=== PATIENT | female | born 1955 | race Caucasian/White ===

== ENCOUNTER 2021-06-28 09:57 | Outpatient (REF) | payer BC, SELFPAY ==
[2021-06-28 11:31] LABS: MANUAL DIFF FLAG NO
[2021-06-28 12:09] LABS: Basophils Percent Auto 0.6 % (0-2); Eosinophils Absolute Auto 0.1 X10*3/uL (0.0-0.4); Eosinophils Percent Auto 1.3 % (0-4); Hematocrit 42.2 % (37.0-47.0); Hemoglobin 14.4 g/dl (12.0-16.0); Imm Gran Abs Auto 0.01 X10*3/uL (0.00-0.03); Imm Gran Pct Auto 0.2 % (0.0-0.4); Lymphocytes Absolute Auto 2.7 X10*3/uL (1.2-4.9); Lymphocytes Percent Auto 42.9 % (20-40); Mean Corpuscular HGB Conc 34.1 g/dl (31.0-35.0); Mean Corpuscular Hemoglobin 34.6 pg (27.0-33.0); Mean Corpuscular Volume 101.4 fL (80.0-98.0); Mean Platelet Volume 9.3 fL (9.4-12.3); Monocytes Absolute Auto 0.7 X10*3/uL (0.1-1.2); Monocytes Percent Auto 10.9 % (2-11); Neutrophils Absolute Auto 2.8 x10*3/uL (2.0-8.3); Neutrophils Percent Auto 44.1 % (45-73); Platelet Count 265 X10*3/uL (160-400); Red Blood Count 4.16 X10*6/uL (4.20-5.50); Red Cell Distribution Width 11.9 % (11.0-16.0); White Blood Count 6.2 X10*3/uL (4.8-10.8)
[2021-06-28 12:37] LABS: D Dimer High Sensitivity < 150 NG/ML
[2021-06-28 12:52] LABS: Anion Gap 12 (12-20); Blood Urea Nitrogen 19 mg/dL (9-16); Calcium 9.8 mg/dL (8.4-10.2); Carbon Dioxide 26 mmol/L (22-29); Chloride 105 mmol/L (96-108); Estimated Glomerular Filt Rate > 60; Glucose Random 83 mg/dL (60-115); Potassium 4.5 mmol/L (3.3-5.1); Sodium 138 mmol/L (135-145)
[2021-06-28 13:21] LABS: Erythrocyte Sedimentation Rate 5 MM/HR (0-20)
== END 2021-06-28 09:58 | disposition home or self-care (01) ==
LOC: HO.LAB 09:57
PROVIDERS: PCP Internal Medicine; Visit Provider Hospitalist
DX: R00.0 Tachycardia, unspecified (principal); I48.91 Unspecified atrial fibrillation; R06.02 Shortness of breath; R42 Dizziness and giddiness; R00.2 Palpitations; R06.00 Dyspnea, unspecified; G47.33 Obstructive sleep apnea (adult) (pediatric); Z99.89 Dependence on other enabling machines and devices
CPT/HCPCS: 36415; 80048; 85025; 85379; 85652; 94618

== ENCOUNTER 2021-07-12 09:28 | Outpatient (REF) | payer BC, SELFPAY ==
--- NOTE | ~2021-07-12 | CT_ITS ---
EXAMINATION: CT CHEST WITH CONTRAST CLINICAL INFORMATION: Dyspnea. COMPARISON: None TECHNIQUE: Multidetector volumetric CT imaging of the chest was obtained after the administration of 65 mL of Omnipaque 350 intravenous contrast without immediate adverse reactions. Axial MIP volume rendering provided. Sagittal and coronal reformatted images were obtained. This CT examination was performed using dose optimization techniques as appropriate, variously including the following: *Automated exposure control *Adjustment of mA and/or kV according to patient size (this includes techniques or standardized protocols for targeted exams where dose is matched to indication/reason for exam; i.e. extremities or head) *Use of iterative reconstruction technique DLP: 319 mGy-cm FINDINGS: LUNGS: The lungs are clear. No evidence of emphysema, interstitial lung disease or bronchiectasis is seen. No endobronchial or endotracheal lesion is seen. MEDIASTINUM: The heart is slightly enlarged. There is mild coronary artery calcification. There are upper normal size right hilar lymph nodes. The mediastinum is otherwise normal. PLEURA: There is no pleural effusion. No pleural mass or thickening. AXILLA: No lymphadenopathy. UPPER ABDOMEN: Unremarkable. OSSEOUS STRUCTURES: There are degenerative changes of the spine. CT/CT chest w con IMPRESSION: Slightly enlarged heart and mild coronary artery calcification. Upper normal size right hilar lymph nodes. Otherwise unremarkable exam. Fleischner guidelines were followed.
[2021-07-12] MEDS: iohexoL 350 MG/ML 100 ML INFUS..BTL IV (10:37)
== END 2021-07-12 09:29 | disposition home or self-care (01) ==
LOC: HO.CT 09:28
PROVIDERS: Visit Provider Hospitalist
DX: R06.00 Dyspnea, unspecified (principal)
CPT/HCPCS: 71260; Q9967

== ENCOUNTER → 2021-08-13 09:33 | Outpatient (BNVA) | payer BC, SELFPAY | PROVIDERS: PCP Internal Medicine; Visit Provider Hospitalist | DX: R00.0 Tachycardia, unspecified (principal); R06.00 Dyspnea, unspecified; R00.2 Palpitations; R42 Dizziness and giddiness ==

== ENCOUNTER 2024-12-02 10:03 | Outpatient (AMB) | payer BC, SELFPAY ==
--- OUTSIDE RECORDS SUMMARY | 2024-12-02 10:56 | XMS_ITS | Clinical Summary ---
Author Organization [address] [place] [address] [place] [phone] Phone Care Team Providers Care Railroad Mechanic Name Role Phone Richelle Keen NP Primary Care Provider +1- [phone] Allergies No known active allergies Medications metoprolol succinate (TOPROL-XL) 50 mg 24 hr tablet Take 1.5 tablets (75 mg total) by mouth 2 (two) times a day. 4 Active Eliquis 5 mg tablet TAKE 1 TABLET BY MOUTH TWICE A DAY 180 tablet 3 5 Active flecainide (TAMBOCOR) 50 mg tablet TAKE 1 TABLET BY MOUTH TWICE A DAY 180 tablet 3 5 Active flecainide (TAMBOCOR) 50 mg tablet Take 1 tablet (50 mg total) by mouth 2 (two) times a day. 4 11/09/19 25 Discontinued Active Problems Problem Noted Date Diagnosed Date Malaise and fatigue 04/28/2021 PVC (premature ventricular contraction) 04/28/19 22 SOB (shortness of breath) 04/28/2021 Atrial flutter with rapid ve ntricular response (CMS/HCC V24, CMS/HCC V28) 02/19/2021 Elevated lipids 02/19/2021 Hypertension 02/19/2021 PAF (paroxysmal atrial fibri llation) ([facility] V24, [facility] V28) 02/19/2021 Palpitation 02/19/2021 Surgical History Surgery Date Site/Laterality Comments ROTATOR CUFF REPAIR 2014 Left PROCEDURE: HISTORICAL ROTATOR CUFF REPAIR Medical History Medical History Date Comments Pneumonia 2019 DX:Pneumonia EDILIA (obstructive sleep apnea) DX :EDILIA (obstructive sleep apnea) Dyspnea DX:Dyspnea Family History Medical History Relation Name Comments Other: Motor vehicle accident Brother Cirrhosis Father Diabetes Mother Hyperlipidemia Mother Stroke Mother Hyperlipidemia Sister 1 Other: Lupus erythematosus Sister 2 Relation Name Status Comments Brother Father Mother Sister 1 Sister 2 Social History Tobacco Use Types Packs/Day Years Used Date Smoking Tobacco: Never Smokeless Tobacco: Never Alcohol Use Standard Drinks/Week Comments Yes 2 (1 standard drink = 0.6 oz pur e alcohol) Comments Unknown Sex and Gender Information Value Date Recorded Sex Assigned at Not on file Legal Sex Female 2:16 PM EST Gender Identity Not on file Sexual Orientation Not on file Obstetrics History Last Filed Vital Signs Vital Sign Reading Time Taken Comments Blood Pressure 110/80 08/22/2024 9:34 AM EDT Pulse 59 08/07/2024 9:27 AM EDT Temperature - - Respiratory Rate - - Oxygen Saturation 94% 08/07/2024 9:27 AM EDT Inhaled Oxygen Concentration - - Weight 84.8 kg (187 lb) 08/22/2024 9:34 AM EDT Height 152.4 cm (5') 08/22/2024 9:34 AM EDT Body Mass Index 36.52 08/22/2024 9:34 AM EDT Plan of Treatment Upcoming Encounters Date Type Department Care Team (Late st Contact Info) Description 02/17/2025 9:40 AM EST Office Visit [facility] - [address] [facility] [address] [place] [address] Livier Barber PA [address] [place] [address] Health Maintenance Due Date Last Done Comments Breast Cancer Screening 1957 DTaP,Tdap,and Td Vaccines (1 - Tdap) 1976 Pneumococcal Vaccine: 50+ Years (1 of 1 - PCV) 2007 Zoster Vaccines (1 of 2) 2007 Cholesterol Screening (Lipid Panel) 03/26/2022 Colorectal Cancer Screening: Colonoscopy 03/26/2022 Falls Risk Assessment 03/26/2022 Hepatitis C Screening 03/26/2022 Medicare Annual Wellness Visit 03/26/2022 Osteoporosis Screening (Bone Density Screening) 03/26/2022 Social Influencers of Health Screening 03/26/2022 COVID-19 Vaccine (3 - 2023-2 5 season) 2023 07/17/2020, 06/19/2020 Depression Screening 04/17/2024 Influenza Vaccine (#1) 2024 Hypertension/CHF/CAD Annual BMP Blood Test 08/09/2025 08/09/2024 RSV Immunization Adult Patients (1 - 1-dose 75+ series) 2032 HIB Vaccines Aged Out No longer eligi ble based on patient's age to complete this topic HPV Vaccines Aged Out No longer eligi ble based on patient's age to complete this topic Hepatitis A Vaccines Aged Out No long er eligible based on patient's age to complete this topic Hepatitis B Vaccines Aged Out No long er eligible based on patient's age to complete this topic IPV Vaccines Aged Out No longer eligi ble based on patient's age to complete this topic MMR Vaccines Aged Out No longer eligi ble based on patient's age to complete this topic Meningococcal ACWY Vaccine Aged Out N o longer eligible based on patient's age to complete this topic Meningococcal B Vaccine Aged Out No l onger eligible based on patient's age to complete this topic RSV Immunization Patients Under 20 months Aged Out No longer eligible b ased on patient's age to complete this topic Varicella Vaccines Aged Out No longer eligible based on patient's age to complete this topic Procedures Procedure Name Priority Date/Time Associated Diagnosis Comments COMPREHENSIVE METABOLIC PANEL Routine 08/09/2024 8:48 AM EDT PAF (paroxysmal atrial fibrillation) (CMS/HCC V24, CMS/HCC V28) Primary hypertension Palpitation PVC (premature ventricular contraction) from Last 3 Months or Most Recently Relevant to Health Maintenance Results * (ABNORMAL) Comprehensive metabolic panel (08/09/2024 8:48 AM EDT) [facility] Signature Glucose 95 70 - 99 mg/dL [facility] 1 Blood Urea Nitrogen (BUN) 17 8 - 27 mg/dL [facility] 1 Creatinine 0.75 0.57 - 1.00 mg/dL [facility] 1 eGFR 87 >59 mL/min/1. 73 [facility] 1 BUN/Creatinine Ratio 23 12 - 28 [facility] 1 Sodium 141 134 - 144 mmol/L [facility] 1 Potassium 4.5 3.5 - 5.2 mmol/L [facility] 1 Chloride 104 96 - 106 mmol/L [facility] 1 Carbon Dioxide 19(L) 20 - 29 mmol/L [facility] 1 Calcium 8.7 8.7 - 10.3 mg/dL [facility] 1 Protein Total 6.5 6.0 - 8.5 g/dL [facility] 1 Albumin 4.3 3.9 - 4.9 g/dL [facility] 1 Globulin Total 2.2 1.5 - 4.5 g/dL [facility] 1 Bilirubin Total 0.4 0.0 - 1.2 mg/dL [facility] 1 Alkaline Phosphatase 74 44 - 121 IU/L [facility] 1 Aspartate aminotransferase (AST) 22 0 - 40 IU/L [facility] 1 Alanine Aminotransferase (ALT) 19 0 - 32 IU/L [facility] 1 Blood Venous blood specimen / Unknown 08/09/2024 8:48 AM EDT 08/09/2024 Narrative [facility] 1 - 08/12/2024 1:06 PM EDT Performed at: 01 - [facility] [address] [id number] Dumper Mold Cleaner: Yanna Lawrence MD, Phone: [phone] us Livier TERAN LAB BLOOD ORDERABLES Final Resul t [facility] 1 from Last 3 Months or Most Recently Relevant to Health Maintenance Insurance Care Teams Railroad Mechanic Relationship Specialty Start Date End Date Richelle Keen NP [address] [place] [id number] PCP - General Nurse Practitioner 08/07/24
--- OUTSIDE RECORDS SUMMARY | 2024-12-02 10:56 | XMS_ITS | Clinical Summary ---
Author Organization [facility] Address [address] [place] [address] Phone Care Team Providers Care Jewelry Enameler Name Role Phone Pcp, Unknown Primary Care Provider Unavailabl e Allergies No known active allergies Social History Tobacco Use Types Packs/Day Years Used Date Smoking Tobacco: Never Assessed Comments Unknown Sex and Gender Information Value Date Recorded Sex Assigned at Not on file Legal Sex Female 11:13 AM EDT Gender Identity Not on file Sexual Orientation Not on file Last Filed Vital Signs Vital Sign Reading Time Taken Comments Blood Pressure 130/80 01/06/2014 12:00 AM EDT Pulse 72 01/06/2014 12:00 AM EDT Temperature - - Respiratory Rate 10 01/06/2014 12:00 AM EDT Oxygen Saturation - - Inhaled Oxygen Concentration - - Weight 68 kg (150 lb) 01/06/2014 12:00 AM EDT Height 152.4 cm (5') 01/06/2014 12:00 AM EDT Body Mass Index 29.29 01/06/2014 12:00 AM EDT Plan of Treatment Not on file Medical Devices Not on file Insurance BLUE [place] OUT OF STATE PPO [place]UE [place] OUT OF STATE PPO [place]UE [place] OUT OF STATE PPO [place]UE [place] OUT OF STATE PPO [place]UE [place] OUT OF STATE PPO [place]UE [place] OUT OF STATE PPO [place]UE [place] OUT OF STATE PPO [place]UE [place] OUT OF STATE PPO BLUE [place] OUT OF STATE PPO Care Teams Jewelry Enameler Relationship Specialty Start Date End Date Pcp, Unknown PCP - General 10/20/13 Additional Source Comments The information contained in this document represents components of the legal health record. It is not the complete legal health record.[facility]
== END 2024-12-02 10:16 | disposition home or self-care (01) ==
LOC: HO.HMGAL 10:03
PROVIDERS: PCP Nurse Practitioner Primary Care; Visit Provider Registered Nurse Emergency
DX: J30.89 Other allergic rhinitis (principal)
CPT/HCPCS: 95117; 95165

== ENCOUNTER 2024-12-25 08:36 | Outpatient (AMB) | payer MEDICARE, SELFPAY ==
--- OUTSIDE RECORDS SUMMARY | 2024-12-25 09:55 | XMS_ITS | Clinical Summary ---
Author Organization [address] [place] [address] [place] [phone] Phone Care Team Providers Care Customer Project Manager Name Role Phone Richelle Keen NP Primary Care Provider [phone]- [phone] Allergies No known active allergies Medications Eliquis 5 mg tablet TAKE 1 TABLET BY MOUTH TWICE A DAY 180 tablet 3 5 Active flecainide (TAMBOCOR) 50 mg tablet TAKE 1 TABLET BY MOUTH TWICE A DAY 180 tablet 3 5 Active metoprolol succinate (TOPROL-XL) 50 mg 24 hr tablet TAKE 1.5 TABLETS BY MOUTH 2 TIMES DAILY. 270 tablet 2 5 Active metoprolol succinate (TOPROL-XL) 50 mg 24 hr tablet Take 1.5 tablets (75 mg total) by mouth 2 (two) times a day. 4 12/21/19 25 Discontinued Active Problems Problem Noted Date Diagnosed Date Malaise and fatigue 04/28/2021 PVC (premature ventricular contraction) 04/28/19 22 SOB (shortness of breath) 04/28/2021 Atrial flutter with rapid ve ntricular response (CMS/HCC V24, CMS/HCC V28) 02/19/2021 Elevated lipids 02/19/2021 Hypertension 02/19/2021 PAF (paroxysmal atrial fibri llation) (CMS/[facility] V24, [facility] V28) 02/19/2021 Palpitation 02/19/2021 Surgical [...] Description 02/17/2025 9:40 AM EST Office Visit [facility] - [address] [place] [address] Livier Barber PA [address] [place] [address] [place] [phone] Health Maintenance Due Date Last Done Comments [...] 03/26/2022 Social Influencers of Health Screening 03/26/2022 Depression Screening 04/17/2024 COVID-19 Vaccine (3 - 2024-2 6 season) 2024 07/17/2020, 06/19/2020 Hypertension/CHF/CAD Annual BMP Blood Test 08/09/2025 08/09/2024 RSV Immunization Adult Patients (1 - 1-dose 75+ series) 2032 Influenza Vaccine Completed 12/17/2024 HIB Vaccines Aged Out No longer eligi [...] Comprehensive metabolic panel (08/09/2024 8:48 AM EDT) Glucose 95 70 - 99 mg/dL [facility] [...] PM EDT Performed at: 01 - [facility] [address] [id number] Study Abroad Coordinator: Yanna Lawrence MD, Phone: [phone] us Livier TERAN LAB BLOOD ORDERABLES Final Resul t [facility] 1 from Last 3 Months or Most Recently Relevant to Health Maintenance Insurance Care Teams Customer Project Manager Relationship Specialty Start Date End Date Richelle Keen NP [address] [place] [address] PCP - General Nurse Practitioner 08/07/24
--- OUTSIDE RECORDS SUMMARY | 2024-12-25 09:56 | XMS_ITS | Clinical Summary ---
Author Organization [facility] Address [address] [place] [address] Phone Care Team Providers Care Telephone Worker Name Role Phone Pcp, Unknown Primary Care [...] Medical Devices Not on file Insurance [place]UE [place] OUT STATE PPO BLUE [place] OUT OF STATE PPO [place]UE [place] OUT OF STATE PPO [place] OUT OF STATE PPO [place]UE [place] OUT OF STATE PPO [place]UE [place] OUT OF STATE PPO [place] OUT OF STATE PPO [place] OUT OF STATE PPO [place]UE [place] OUT OF STATE PPO Care Teams Telephone Worker Relationship Specialty Start Date End Date Pcp, Unknown PCP - General 10/20/13 Additional Source Comments The information contained in this document represents components of the legal health record. It is not the complete legal health record.[facility]
== END 2024-12-25 08:38 | disposition home or self-care (01) ==
LOC: HO.HMGAL 08:36
PROVIDERS: PCP Nurse Practitioner Primary Care; Visit Provider Registered Nurse Emergency
DX: J30.89 Other allergic rhinitis (principal)
CPT/HCPCS: 95117; 95165

== ENCOUNTER 2025-01-29 12:03 | Outpatient (AMB) | payer MEDICARE, SELFPAY | END 2025-01-29 12:04 | disposition home or self-care (01) | LOC: HO.HMGAL 12:03 | PROVIDERS: PCP Nurse Practitioner Primary Care; Visit Provider Registered Nurse Emergency | DX: J30.89 Other allergic rhinitis (principal) | CPT/HCPCS: 95117; 95165 ==

== ENCOUNTER 2025-02-26 10:47 | Outpatient (AMB) | payer MEDICARE, SELFPAY ==
--- OUTSIDE RECORDS SUMMARY | 2025-02-26 13:01 | XMS_ITS | Clinical Summary ---
Author Organization [facility] Address [address] [place] [address] Phone Care Team Providers Care Impregnator Electrolytic Capacitors Name Role Phone Pcp, Unknown Primary Care [...] Medical Devices Not on file Insurance [place]UE [place] OUT STATE PPO [place]UE [place] OUT OF STATE PPO [place]UE [place] OUT OF STATE PPO [place]UE [place] OUT OF STATE PPO [place]UE [place] OUT OF STATE PPO BLUE [place] OUT OF STATE PPO BLUE [place] OUT OF STATE PPO [place]UE [place] OUT OF STATE PPO [place]UE [place] OUT OF STATE PPO Care Teams Impregnator Electrolytic Capacitors Relationship Specialty Start Date End Date Pcp, Unknown PCP - General 10/20/13 Additional Source Comments The information contained in this document represents components of the legal health record. It is not the complete legal health record.[facility]
--- OUTSIDE RECORDS SUMMARY | 2025-02-26 13:01 | XMS_ITS | Clinical Summary ---
Author Organization [address] [place] [address] [place] [phone] Phone Care Team Providers Care Radiological Engineer Name Role Phone Richelle Keen NP Primary Care Provider +1- [phone] Allergies No known active allergies Medications Eliquis 5 mg tablet TAKE 1 TABLET BY MOUTH TWICE A DAY 180 tablet 3 06/05/2024 Active flecainide (TAMBOCOR) 50 mg tablet TAKE 1 TABLET BY MOUTH TWICE A DAY 180 tablet 3 11/08/2024 Active metoprolol succinate (TOPROL-XL) 50 mg 24 hr tablet TAKE 1.5 TABLETS BY MOUTH 2 TIMES DAILY. 270 tablet 2 12/20/2024 Active Active Problems Problem Noted Date Diagnosed Date Malaise and fatigue 04/28/2021 PVC (premature ventricular contraction) 04/28/19 22 SOB (shortness of breath) 04/28/2021 Atrial flutter with rapid ve ntricular response ([facility] V24, [facility] V28) 02/19/2021 Elevated lipids 02/19/2021 Hypertension 02/19/2021 PAF (paroxysmal atrial fibri llation) ([facility] V24, [facility] V28) 02/19/2021 Palpitation 02/19/2021 Encounters Date Type Department Care Team Description 02/17/2025 9:40 AM EST Office Visit [facility] - [address] [place] [address] Livier Barber PA PAF (paroxysmal atrial fibrillation) (CMS/HCC V24, CMS/HCC V28) (Primary Dx); Primary hypertension; PVC (premature ventricular contraction) from Last 3 Months Surgical History Surgery Date Site/Laterality Comments ROTATOR CUFF REPAIR 2013 Left PROCEDURE: HISTORICAL ROTATOR CUFF REPAIR Medical History Medical History Date Comments Pneumonia 2018 DX:Pneumonia EDILIA (obstructive sleep apnea) DX :EDILIA [...] Date Smoking Tobacco: Never Smokeless Tobacco: Never Tobacco Cessation:Counseling Given: Not Answered Alcohol Use Standard Drinks/Week Comments Yes 2 (1 standard drink = 0.6 oz pur e alcohol) Comments Unknown Sex and Gender Information Value Date Recorded Sex Assigned at Not on file Legal Sex Female 2:16 PM EST Gender Identity Not on file Sexual Orientation Not on file Obstetrics History Last Filed Vital Signs Vital Sign Reading Time Taken Comments Blood Pressure 130/80 02/17/2025 9:31 AM EST Pulse 60 02/17/2025 9:31 AM EST Temperature - - Respiratory Rate - - Oxygen Saturation 96% 02/17/2025 9:31 AM EST Inhaled Oxygen Concentration - - Weight 83.5 kg (184 lb) 02/17/2025 9:31 AM EST Height 152.4 cm (5') 02/17/2025 9:31 AM EST Body Mass Index 35.94 02/17/2025 9:31 AM EST Plan of Treatment Health Maintenance Due Date Last Done Comments Breast Cancer Screening 1957 Colorectal Cancer Screening: Colonoscopy 1957 DTaP,Tdap,and Td Vaccines (1 - Tdap) 1976 Pneumococcal Vaccine: 50+ Years (1 of 1 - PCV) 2007 Zoster Vaccines (1 of 2) 2007 Cholesterol Screening (Lipid Panel) 03/26/2022 Falls Risk Assessment 03/26/2022 Hepatitis C [...] Procedure Name Priority Date/Time Associated Diagnosis Comments ECG 12-LEAD Routine 02/17/2025 10:04 AM EST PAF (paroxysmal atrial fibrillation) (CMS/HCC V24, CMS/HCC V28) EXTERNAL CLINICAL LAB Routine 02/08/2025 2:10 PM EDT COMPREHENSIVE METABOLIC PANEL Routine 08/09/2024 8:48 AM EDT PAF (paroxysmal atrial fibrillation) (CMS/HCC V24, CMS/HCC V28) Primary hypertension Palpitation PVC (premature ventricular contraction) from Last 3 Months or Most Recently Relevant to Health Maintenance Results * ECG 12 lead (02/17/2025 10:04 AM EST) Ventricular Rate ECG 60 BPM GEMUSE Atrial Rate 60 BPM GEMUSE P-R Interval 194 ms GEMUSE QRS Duration 104 ms GEMUSE Q-T Interval 448 ms GEMUSE QTc 448 ms GEMUSE P Wave Bowlus 60 degrees GEMUSE R Bowlus 9 degrees GEMUSE T Bowlus 54 degrees GEMUSE ECG Interpretation Normal sinus rhythm RSR' or QR pattern in V1 suggests right ventricular conduction delay Otherwise normal ECG When compared with ECG of 07-AUG-2024 09:31, No significant change was found Confirmed by Nargis DO JOHN ([id number]) on 02/19/2025 4:02:00 PM GEMUSE 02/17/2025 9:40 AM EST 02/19/2025 4:02 PM EST Livier TERAN ECG ORDERABLES Edited Result - Final GEMUSE * External clinical lab (02/08/2025 2:10 PM EDT) Historical Provider LAB BLOOD ORDERABLES Gogo l Result * (ABNORMAL) Comprehensive metabolic panel (08/09/2024 8:48 [...] - 08/12/2024 1:06 PM EDT Performed at: - [facility] [address] [id number] Tile Picker: Yanna Lawrence MD, Phone: [phone] us Livier TERAN LAB BLOOD ORDERABLES Final Resul t [facility] 1 from Last 3 Months or Most Recently Relevant to Health Maintenance Insurance Care Teams Radiological Engineer Relationship Specialty Start Date End Date Richelle Keen NP [address] [place] [address] PCP - General Nurse Practitioner 08/07/24
== END 2025-02-26 10:55 | disposition home or self-care (01) ==
LOC: HO.HMGAL 10:47
PROVIDERS: PCP Nurse Practitioner Primary Care; Visit Provider Registered Nurse Emergency
DX: J30.89 Other allergic rhinitis (principal)
CPT/HCPCS: 95117; 95165

== ENCOUNTER 2025-03-26 08:49 | Outpatient (AMB) | payer MEDICARE, SELFPAY | END 2025-03-26 08:49 | disposition home or self-care (01) | LOC: HO.HMGAL 08:49 | PROVIDERS: PCP Nurse Practitioner Primary Care; Visit Provider Registered Nurse Emergency | DX: J30.89 Other allergic rhinitis (principal) | CPT/HCPCS: 95117; 95165 ==